=== PATIENT | female | born 1945 | race Caucasian/White ===

== ENCOUNTER 2020-09-27 14:04 | Outpatient (CLI) | payer MEDICARE, MEDICAID ==
[2020-09-27] MEDS ORDERED: METH4TAB6 PO (15:09)
[2020-09-27] MEDS ORDERED: MELO7.5T31 PO (15:09)
[2020-09-27] MEDS ORDERED: IPRA3AMP30 INH (15:09)
[2020-09-27] MEDS ORDERED: OMEP20TA62 PO (15:09)
[2020-09-27] MEDS ORDERED: FERR-46 PO (15:09)
[2020-09-27] MEDS ORDERED: METO100T5 PO (15:09)
[2020-09-27] MEDS ORDERED: HYDR1TAB53 PO (15:09)
[2020-09-27] MEDS ORDERED: OMEG1CAP2 PO (15:09)
[2020-09-27] MEDS ORDERED: ZOLP10TA PO (15:09)
[2020-09-27] MEDS ORDERED: DOXY100T PO (15:09)
[2020-09-27] MEDS ORDERED: VIT1CAPS11 PO (15:09)
[2020-09-27] MEDS ORDERED: ERGO500017 PO (15:09)
[2020-09-27] MEDS ORDERED: ATOR-2 PO (15:09)
[2020-09-27] MEDS ORDERED: PARO40TA3 PO (15:09)
[2020-09-27] MEDS ORDERED: FLUT9.9S NS (15:09)
[2020-09-27] MEDS ORDERED: AMLO-211 PO (15:09)
[2020-09-27] MEDS ORDERED: DOXA4TAB3 PO (15:09)
[2020-09-27] MEDS ORDERED: FLUT1BLS3 IH (15:09)
[2020-09-27] MEDS ORDERED: LEVO88TA4 PO (15:09)
[2020-09-27] MEDS ORDERED: ALBU8.5H8 INH (15:09)
[2020-09-27] MEDS ORDERED: ASPI-1026 PO (15:09)
[2020-09-27] MEDS ORDERED: IRBE75TA6 PO (15:09)
[2020-09-27 15:30] LABS: ALBUMIN 3.8 g/dL (3.4-5.0); ANION GAP 4 mmol/L (5-15); CHLORIDE 100 mmol/L (98-107)
[2020-09-27 15:33] LABS: BASOPHILS % (AUTO) 1 % (0-1); EOSINOPHILS % (AUTO) 3 % (1-7); LYMPHOCYTES % (AUTO) 16 % (22-44); MEAN CORPUSCULAR HEMOGLOBIN 33.1 pg (27.0-34.8); MEAN CORPUSCULAR HGB CONC 34.1 g/dL (32.4-35.8); MEAN PLATELET VOLUME 7.1 fL (7.4-10.4); MONOCYTES % (AUTO) 9 % (2-9); NEUTROPHILS % (AUTO) 72 % (42-75); PLATELET COUNT 225 x10^3/uL (130-400); RED BLOOD COUNT 4.28 x10^6/uL (3.82-5.3); RED CELL DISTRIBUTION WIDTH 14.4 % (9.6-15.2)
[2020-09-27 15:35] LABS: ALANINE AMINOTRANSFERASE 32 U/L (12-78); ALKALINE PHOSPHATASE 53 U/L (45-117); BILIRUBIN,TOTAL 0.4 mg/dL (0.2-1.0); CREATININE 0.89 mg/dL (0.55-1.02); TOTAL PROTEIN 7.8 g/dL (6.4-8.2)
[2020-09-27 15:39] LABS: INTERNATIONAL NORMALIZED RATIO 1.02 (0.93-1.1); PROTHROMBIN TIME 10.9 Seconds (9.6-11.5)
[2020-09-27 15:57] LABS: MICROSCOPIC AUTO
[2020-10-07] MEDS ORDERED: METH-640 PO (07:12)
[2020-10-07] MEDS ORDERED: HYDR-2214 PO (07:12)
[2020-10-21] MEDS ORDERED: LOSA25TA25 PO (21:13)
[2020-10-21] MEDS ORDERED: BISA10SU54 PR (21:13)
[2020-10-21] MEDS ORDERED: ONDA4TAB7 PO (21:13)
[2020-10-21] MEDS ORDERED: POLY17PO5 PO (21:13)
[2020-10-21] MEDS ORDERED: SODI1TAB PO (21:13)
[2020-10-21] MEDS ORDERED: AMLO10TA4 PO (21:13)
[2020-10-21] MEDS ORDERED: TRAM-47 PO (21:13)
[2020-10-21] MEDS ORDERED: ENOX40SY4 SQ (21:13)
[2020-10-21] MEDS ORDERED: FAMO-79 PO (21:13)
[2020-10-21] MEDS ORDERED: NA P133E2 PR (21:13)
[2020-11-02] MEDS ORDERED: FIDA200T PO (11:47)
== END 2020-09-27 23:59 | disposition home or self-care (01) ==
LOC: STAR 14:04
PROVIDERS: ATTEND Neurological Surgery
DX: Z01.812 Encounter for preprocedural laboratory examination (principal); Z20.822 Contact with and (suspected) exposure to COVID-19; Z01.811 Encounter for preprocedural respiratory examination; Z01.818 Encounter for other preprocedural examination; Z01.810 Encounter for preprocedural cardiovascular examination; M54.16 Radiculopathy, lumbar region; M43.06 Spondylolysis, lumbar region; R79.1 Abnormal coagulation profile; R82.90 Unspecified abnormal findings in urine; R94.31 Abnormal electrocardiogram [ECG] [EKG]; J43.9 Emphysema, unspecified; M41.86 Other forms of scoliosis, lumbar region
CPT/HCPCS: 36415; 71046; 72110; 80053; 81001; 85025; 85610; 85730; 87077; 87086; 93005; U0003; 87186